=== PATIENT | male | born 1955 | race Caucasian/White ===

== ENCOUNTER 2017-07-07 08:59 | Emergency (ER) | payer OTHER ==
[~2017-07-07] VITALS: Ht 167.6 cm; Wt 74.0 kg
[2017-07-07 09:05] VITALS: TEMP 36.8; Ht 167.6 cm; Wt 74.0 kg
[2017-07-07] MEDS ORDERED: METO25TA3 PO (09:26)
[2017-07-07] MEDS ORDERED: ROSU40TA PO (09:26)
[2017-07-07] MEDS ORDERED: NXM/40 PO (09:26)
[2017-07-07] MEDS ORDERED: ASPI81TA28 PO (09:26)
[2017-07-07] MEDS ORDERED: SODIUM CHLORIDE 0.9% 1000ML 1,000 ML IV STA (09:31)
[2017-07-07 09:43] LABS: BASO % 0.5 %; BASO ABS # 0.03 K/uL (0-0.2); COMPLETE YES; EOS % 8.2 %; HEMATOCRIT 44.4 % (42-52); IG% 0.3 %; LYMPH % 32.8 %; LYMPH ABS # 2.11 K/uL (1.2-3.4); MEAN CELL VOLUME 88.6 fL (80-100); MEAN CORPUSCULAR HEMOGLOBIN 29.1 pg (25-34); MEAN CORPUSCULAR HGB CONC 32.9 g/dl (32-36); MEAN PLATELET VOLUME 9.6 fL (7.4-10.4); MONO % 11.8 %; NEUT % 46.4 %; PLATELET COUNT 252 K/uL (130-400); RED BLOOD COUNT 5.01 M/uL (4.7-6.1); WHITE BLOOD COUNT 6.43 K/uL (4.8-10.8)
--- NOTE | 2017-07-07 09:45 | EMERGENCY ROOM VISIT NOTE ---
History Report prepared by [place]: Shagufta Cook Under the Supervision of: Dr. Elder Griffith M.D. First contact with patient: 09:29 Chief Complaint: CHEST PAIN Stated Complaint: CHEST DISCOMFORT, IRREGULAR HEARTBEAT Nursing Triage Summary: pt to the ED with c/o feeling like he is in afib and c/o chest discomfort that goes into his neck. pt also has had a dry cough no LE edema History of Present Illness The patient is a 62 year old male who presents to the Emergency Room with complaints of chest discomfort that started earlier this morning. He states the pain lasted for approximately 1 hour, then subsided. He rates the discomfort as a 2/10 in severity. He thinks he was in atrial fibrillation during the episode and states he has an rodolfo on his phone that showed an irregular rhythm. The patient also complains of a cough and neck pain. He follows with a Scientific Specialist in [place], [place]. He admits to a family history of heart disease and both his Father and grandfather from [place]'s in their 40's. He is a nonsmoker and drinks alcohol socially. Source of History: patient Onset: earlier this morning Position: chest Symptom Intensity: 2/10 Timing: resolved Associated Symptoms: + cough, + neck pain Review of Systems See HPI for pertinent positives and negatives. A total of ten systems were reviewed and were otherwise negative. Past Medical & Surgical Medical Problems: (1) Atrial fibrillation (2) Cardiac murmur due to mitral valve disorder (3) GERD (gastroesophageal reflux disease) (4) Hyperlipidemia Family History Heart disease Social History Smokeless Tobacco Use: No Alcohol Use: occasionally Drug Use: none Marital Status: Housing Status: lives with family Occupation Status: employed Current/Historical Medications Scheduled Aspirin (Aspirin Ec), 81 MG PO DAILY Esomeprazole Magnesium (Nexium), 40 MG PO DAILY Metoprolol Succinate (Toprol Xl), 25 MG PO DAILY Rosuvastatin Calcium (Crestor), 40 MG PO DAILY Allergies Coded Allergies: No Known Allergies (Unverified , 07/07/17) Physical Exam Vital Signs Date Time Temp Pulse Resp B/P (MAP) Pulse Ox O2 Delivery O2 Flow Rate FiO2 07/07/17 11:44 66 18 131/91 99 Room Air 07/07/17 10:36 72 16 133/92 97 Room Air 07/07/17 09:08 104 07/07/17 09:05 36.8 80 20 169/97 97 Room Air Physical Exam GENERAL: Awake, alert, well-appearing, in no distress HENT: Normocephalic, atraumatic. Oropharynx unremarkable. EYES: Normal conjunctiva. Sclera non-icteric. NECK: Supple. No nuchal rigidity. FROM. No JVD. RESPIRATORY: Clear to auscultation. CARDIAC: Regular rate, normal rhythm. 3/6 systolic murmur. Extremities warm and well perfused. Pulses equal. ABDOMEN: Soft, non-distended. No tenderness to palpation. No rebound or guarding. No masses. RECTAL: Deferred. MUSCULOSKELETAL: Chest examination reveals no tenderness. The back is symmetrical on inspection without obvious abnormality. There is no CVA tenderness to palpation. No joint edema. LOWER EXTREMITIES: Calves are equal size bilaterally and non-tender. No edema. No discoloration. NEURO: Normal sensorium. No sensory or motor deficits noted. SKIN: No rash or jaundice noted. Medical Decision & Procedures ER Provider Diagnostic Interpretation: Radiology results as stated below per my review and radiologist interpretation: CHEST ONE VIEW PORTABLE CLINICAL HISTORY: CHEST PAIN dyspnea COMPARISON STUDY: No previous studies for comparison. FINDINGS: The bones soft tissues and hemidiaphragms are normal. The cardiomediastinal silhouette is normal. The lungs are clear. The pulmonary vasculature is normal. IMPRESSION: Negative chest. The above report was generated using voice recognition software. It may contain grammatical, syntax or spelling errors. Electronically signed by: Kashif Mcwilliams M.D. 07/07/2017 10:20 AM Laboratory Results 07/07/17 09:10 Red Blood Count 5.01, Mean Corpuscular Volume 88.6, Mean Corpuscular Hemoglobin 29.1, Mean Corpuscular Hemoglobin Concent 32.9, Mean Platelet Volume 9.6, Neutrophils (%) (Auto) 46.4, Lymphocytes (%) (Auto) 32.8, Monocytes (%) (Auto) 11.8, Eosinophils (%) (Auto) 8.2, Basophils (%) (Auto) 0.5, Neutrophils # (Auto ) 2.98, Lymphocytes # (Auto) 2.11, Monocytes # (Auto) 0.76, Eosinophils # (Auto ) 0.53, Basophils # (Auto) 0.03 07/07/17 09:10 Test 07/07/17 09:10 07/07/17 11:00 White Blood Count 6.43 K/uL (4.8-10.8) Red Blood Count 5.01 M/uL (4.7-6.1) Hemoglobin 14.6 g/dL (14.0-18.0) Hematocrit 44.4 % (42-52) Mean Corpuscular Volume 88.6 fL (80-100) Mean Corpuscular Hemoglobin 29.1 pg (25-34) Mean Corpuscular Hemoglobin Concent 32.9 g/dl (32-36) Platelet Count 252 K/uL (130-400) Mean Platelet Volume 9.6 fL (7.4-10.4) Neutrophils (%) (Auto) 46.4 % Lymphocytes (%) (Auto) 32.8 % Monocytes (%) (Auto) 11.8 % Eosinophils (%) (Auto) 8.2 % Basophils (%) (Auto) 0.5 % Neutrophils # (Auto) 2.98 K/uL (1.4-6.5) Lymphocytes # (Auto) 2.11 K/uL (1.2-3.4) Monocytes # (Auto) 0.76 K/uL (0.11-0.59) Eosinophils # (Auto) 0.53 K/uL (0-0.5) Basophils # (Auto) 0.03 K/uL (0-0.2) RDW Standard Deviation 43.3 fL (36.4-46.3) RDW Coefficient of Variation 13.3 % (11.5-14.5) Immature Granulocyte % (Auto) 0.3 % Immature Granulocyte # (Auto) 0.02 K/uL (0.00-0.02) Anion Gap 7.0 mmol/L (3-11) Est Creatinine Clear Calc Drug Dose 67.3 ml/min Estimated GFR () 89.4 Estimated GFR (Non- 77.1 BUN/Creatinine Ratio 14.1 (10-20) Calcium Level 9.1 mg/dl (8.5-10.1) Magnesium Level 2.3 mg/dl (1.8-2.4) Total Bilirubin 0.6 mg/dl (0.2-1) Direct Bilirubin 0.1 mg/dl (0-0.2) Aspartate Amino Transf (AST/SGOT) 25 U/L (15-37) Alanine Aminotransferase (ALT/SGPT) 39 U/L (12-78) Alkaline Phosphatase 83 U/L (45-117) Pro-B-Type Natriuretic Peptide 36 pg/ml (0-900) Total Protein 7.6 gm/dl (6.4-8.2) Albumin 4.4 gm/dl (3.4-5.0) Lipase 127 U/L (73-393) Thyroid Stimulating Hormone (TSH) 1.290 uIu/ml (0.300-4.500) Troponin I < 0.015 ng/ml (0-0.045) Laboratory results reviewed by me Medications Administered Medications (Trade) Dose Ordered Sig/Chantelle Route Start Time Stop Time Status Last Admin Dose Admin Sodium Chloride 1,000 ml @ 999 mls/hr Q1H1M STAT IV 07/07/17 09:31 07/07/17 10:31 DC 07/07/17 09:37 999 MLS/HR ECG Indication: chest pain Rate (beats per minute): 100 Rhythm: sinus rhythm Findings: no acute ischemic change, other (normal axis, premature supraventricular complex) ED Course 929: The patient was evaluated in room A12. A complete history and physical exam was performed. 1135: I reevaluated the patient. He is feeling well. I discussed his results and instructions to follow up with Cardiology and he verbalized complete understanding and agreement. Medical Decision I reviewed the patient's past medical history, medications, and the nursing notes as described above. Differential Diagnoses: Pneumonia, bronchitis, ACS, CHF, arrhythmia, PE, dehydration, electrolyte abnormality The patient is a 62 y/o gentlemen who presents to the ED with chest discomfort/ palpitations beginning 2 hours [employer] per HPI. On arrival, symptoms resolved and the patient is well-appearing, NAD, AFVSS. EKg unremarkable. CXR negative. Labs unremarkable including WBC, Trop, BNP wnl. 2 hours delta troponin negative. Heart score 3, low risk, thus ACS unlikely. Plan for f/u with title search manager. Findings and plan for follow-up reviewed with patient. Patient agreeable and d/c 'd per discharge instructions. Medication Reconcilliation Current Medication List: was personally reviewed by me Blood Pressure Screening Patient's blood pressure: Elevated blood pressure Blood pressure disposition: Elevated BP felt to be situational Impression Primary Impression: Substernal precordial chest pain Scribe Attestation The scribe's documentation has been prepared under my direction and personally reviewed by me in its entirety. I confirm that the note above accurately reflects all work, treatment, procedures, and medical decision making performed by me. Departure Information Dispostion Home / Self-Care Referrals No Doctor, Assigned (PCP) Patient Instructions ED Chest Pain Atypical Unkn Cause, ED Palpitations, My [facility] Additional Instructions Please follow up with your title search manager this afternoon as scheduled for re- evaluation. Otherwise, your exam, EKG, chest xray, and lab results did not show signs of an emergent condition at this time. Return to the emergency department for worsening symptoms as described in the accompanying instructions.
[2017-07-07 09:51] LABS: ALT/SGPT 39 U/L (12-78); BLOOD UREA NITROGEN 15 mg/dl (7-18); BUN/CREATININE RATIO 14.1 (10-20); CALCIUM 9.1 mg/dl (8.5-10.1); CARBON DIOXIDE 28 mmol/L (21-32); CHLORIDE 104 mmol/L (98-107); CREATININE 1.04 mg/dl (0.60-1.40); GLUCOSE 106 mg/dl (70-99); MAGNESIUM 2.3 mg/dl (1.8-2.4); SODIUM 138 mmol/L (136-145)
[2017-07-07 10:01] LABS: ALKALINE PHOSPHATASE 83 U/L (45-117); AST/SGOT 25 U/L (15-37)
--- NOTE | 2017-07-07 10:21 | DIAGNOSTIC IMAGING REPORT ---
CHEST ONE VIEW PORTABLE CLINICAL HISTORY: CHEST PAIN dyspnea COMPARISON STUDY: No previous studies for comparison. FINDINGS: The bones soft tissues and hemidiaphragms are normal. The cardiomediastinal silhouette is normal. The lungs are clear. The pulmonary vasculature is normal. IMPRESSION: Negative chest. The above report was generated using voice recognition software. It may contain grammatical, syntax or spelling errors. Electronically signed by: Kashif Mcwilliams M.D. 07/07/2017 10:20 AM Dictated Date/Time: 07/07/2017 10:20 AM
[2017-07-07 11:44] VITALS: BP 131/91; PULSE 66; O2SAT 99
== END 2017-07-07 12:05 | disposition home or self-care (01) ==
LOC: C.EDB 09:01 → C.EDA 12:05
DX: R07.2 Precordial pain (principal); I48.91 Unspecified atrial fibrillation; K21.9 Gastro-esophageal reflux disease without esophagitis; E78.5 Hyperlipidemia, unspecified; Z82.49 Family history of ischemic heart disease and other diseases of the circulatory system